=== PATIENT | female | born 1970 | race Caucasian/White ===

== ENCOUNTER → 2019-10-05 10:30 | Outpatient (CLI) | payer OTHER, SELFPAY ==
--- NOTE | 2019-10-05 10:35 | DI.RAD.S_ITS ---
PROCEDURE: XR ANKLE RT MIN 3V INDICATIONS: pain, swelling, r/o fracture TECHNIQUE: 3 views of the ankle were acquired. COMPARISON: [facility], CR, XR FOOT RT MIN 3V, 10/05/2019, 10:55. FINDINGS: Bones: No displaced acute fractures or dislocations. A chronic appearing ossific/calcific density is identified at the tip of the medial malleolus, suggesting previous avulsion injury. Ankle mortise is normally aligned. No suspicious bony lesions. There are mild degenerative changes of the tibiotalar and talonavicular joints. There is a large plantar calcaneal spur. Soft tissues: There is a tibiotalar joint effusion. Moderate soft tissue edema about the ankle is more prominent overlying the lateral malleolus. IMPRESSION: 1. No acute fractures of the right ankle. 2. Prominent soft tissue swelling of the ankle. The need for better evaluation utilizing MRI may be determined clinically. Dictated by: Shashi Merino M.D. on 10/05/2019 at 10:48 Approved by: Shashi Merino M.D. on 10/05/2019 at 10:49
--- NOTE | 2019-10-05 10:35 | DI.RAD.S_ITS ---
PROCEDURE: XR FOOT RT MIN 3V INDICATIONS: pain, swelling, r/o fracture TECHNIQUE: 3 views of the foot were acquired. COMPARISON: [facility], CR, XR ANKLE RT MIN 3V, 10/05/2019, 10:55. FINDINGS: Bones: No displaced fractures or dislocations of the right foot are identified. There are mild degenerative changes of the right foot. No suspicious osseous lesions are evident. There is a prominent plantar calcaneal spur. Soft tissues: No tibiotalar joint effusion. Marked soft tissue swelling about the ankle is more prominent overlying the lateral malleolus. IMPRESSION: No displaced foot fractures. Dictated by: Shashi Merino M.D. on 10/05/2019 at 10:46 Approved by: Shashi Merino M.D. on 10/05/2019 at 10:48
== END ==
PROVIDERS: Referring Provider Physician Assistant; Visit Provider Physician Assistant
DX: S99.911A Unspecified injury of right ankle, initial encounter (principal); M79.671 Pain in right foot; M79.89 Other specified soft tissue disorders; X58.XXXA Exposure to other specified factors, initial encounter
CPT/HCPCS: 73610; 73630